=== PATIENT | male | born 1990 | race Two or more races ===

== ENCOUNTER 2023-06-11 19:44 | Inpatient (IN) | payer MEDICARE, MEDICAID ==
[~2023-06-11] VITALS: Ht 154.9 cm; Wt 55.2 kg
[2023-06-11] MEDS ORDERED: SODIUM CHLORIDE 0.9% 1,000 ML IV ONE (20:15)
[2023-06-11] MEDS ORDERED: levETIRAcetam 500 mg/100ml 100 ML IV SCH (20:15)
[2023-06-11 20:55] LABS: Basophils # (auto) 0 10 ^3/uL (0-0.2); Basophils % (auto) 0.2 % (0.0-2.0); Eosinophils # (auto) 0 10 ^3/uL (0-0.8); Eosinophils % (auto) 0.1 % (0.0-7.0); Hematocrit 46.3 % (41.0-53.0); Hemoglobin 15.1 g/dL (13.5-17.5); Lymphocytes # (auto) 0.7 10 ^3/uL (0.4-5.4); Lymphocytes % (auto) 5.7 % (10.0-50.0); Mean Corpuscular Hgb Conc. 32.7 g/dL (32.0-36.0); Mean Corpuscular Volume 85.6 fL (80.0-100.0); Monocytes # (auto) 0.6 10 ^3/uL (0-1.3); Monocytes % (auto) 5.1 % (0.0-12.0); Neutrophils # (auto) 10.3 10 ^3/uL (1.6-8.6); Neutrophils % (auto) 88.9 % (37.0-80.0); Red Blood Cells 5.41 10^6/uL (4.5-5.90); Red Cell Distribution Width 14.5 % (11.8-14.3); White Blood Cell 11.6 10^3/uL (4.4-10.8)
[2023-06-11 21:04] LABS: Chloride 105 mmol/L (98-107); Potassium 3.9 mmol/L (3.5-5.1); Sodium 138 mmol/L (136-145)
[2023-06-11 21:05] LABS: Anion Gap 7 (5-15); Calcium 9.4 mg/dL (8.5-10.1); Carbon Dioxide 26 mmol/L (20-30)
[2023-06-11 21:10] LABS: BUN/Creatinine Ratio 13.6 (10.0-20.0); Blood Urea Nitrogen 9 mg/dL (9-23); Glucose 101 mg/dL (74-106)
[2023-06-11] MEDS ORDERED: ONDANSETRON HCL 4 MG/2 ML VIAL IV PRN (22:00)
[2023-06-11] MEDS ORDERED: DOCUSATE SOD 100 MG CAP PO PRN (22:00)
[2023-06-11] MEDS: SODIUM CHLORIDE 0.9% 1,000 ML IV SCH (23:46)
[2023-06-11] MEDS: levETIRAcetam 1000 mg/100ml 100 ML IV SCH (23:46)
[2023-06-12] MEDS ORDERED: MORPHINE SULFATE INJ 2 MG/ml SYRG IV PRN
[2023-06-12] MEDS ORDERED: NITROGLYCERIN 0.4 MG SL TAB SL PRN
[2023-06-12 00:27] LABS: Urine Epithelial Cast None Seen /hpf (<5)
[2023-06-12 00:35] LABS: Urine Bacteria FEW /hpf (None Seen); Urine Blood Negative /uL (Negative); Urine Clarity Clear (Clear); Urine Color Yellow (Yellow); Urine Mucus FEW (None Seen); Urine Protein, UAD Negative (Negative); Urine Specific Gravity 1.021 (1.001-1.035); Urine Urobilinogen Normal (Negative); Urine WBC <1 /hpf (0 - 3); Urine pH 5.5 (5.0-8.0)
[2023-06-12 03:45] VITALS: PULSE 88; RESP 18; O2SAT 99
[2023-06-12 05:41] LABS: Basophils # (auto) 0 10 ^3/uL (0-0.2); Basophils % (auto) 0.2 % (0.0-2.0); Eosinophils # (auto) 0.1 10 ^3/uL (0-0.8); Eosinophils % (auto) 0.5 % (0.0-7.0); Hematocrit 43.9 % (41.0-53.0); Hemoglobin 14.8 g/dL (13.5-17.5); Lymphocytes # (auto) 1.5 10 ^3/uL (0.4-5.4); Lymphocytes % (auto) 14.6 % (10.0-50.0); Mean Corpuscular Hemoglobin 28.7 pg (28.0-32.0); Mean Corpuscular Hgb Conc. 33.6 g/dL (32.0-36.0); Mean Corpuscular Volume 85.2 fL (80.0-100.0); Monocytes # (auto) 0.8 10 ^3/uL (0-1.3); Monocytes % (auto) 7.4 % (0.0-12.0); Neutrophils # (auto) 8.1 10 ^3/uL (1.6-8.6); Neutrophils % (auto) 77.3 % (37.0-80.0); Nucleated Red Blood Cells % 0.1 %; Red Blood Cells 5.15 10^6/uL (4.5-5.90); Red Cell Distribution Width 14.6 % (11.8-14.3); White Blood Cell 10.4 10^3/uL (4.4-10.8)
[2023-06-12 05:51] LABS: Alanine Aminotransferase 21 U/L (7-40); Alkaline Phosphatase 61 U/L (46-116); Calcium 8.6 mg/dL (8.7-10.4); Carbon Dioxide 25 mmol/L (20-30); Chloride 111 mmol/L (98-107)
[2023-06-12 05:52] LABS: Anion Gap 6 (5-15); Aspartate Aminotransferase 21 U/L (13-40); BUN/Creatinine Ratio 16.9 (10.0-20.0); Bilirubin, Total 0.6 mg/dL (0.2-1.0); Blood Urea Nitrogen 11 mg/dL (9-23); Glucose 93 mg/dL (74-106); Sodium 142 mmol/L (136-145); Total Protein 6.6 g/dL (5.7-8.2)
[2023-06-12] MEDS: ACETAMINOPHEN 325 MG TAB PO PRN ×2 (07:22→18:57)
[2023-06-12 07:24] VITALS: PULSE 110; RESP 16; O2SAT 96
[2023-06-12] MEDS: levETIRAcetam 1000 mg/100ml 100 ML IV SCH ×2 (10:56→21:46)
[2023-06-12] MEDS: SODIUM CHLORIDE 0.9% 1,000 ML IV SCH (15:39)
[2023-06-12 19:35] VITALS: PULSE 89; RESP 14; O2SAT 93
[2023-06-12] MEDS: HYDROcodone-ACET 5/325MG TAB PO PRN (20:07)
[2023-06-12] MEDS ORDERED: LORazepam 2MG/ML-1ML VIAL IV PRN (21:15)
[2023-06-13] MEDS: SODIUM CHLORIDE 0.9% 1,000 ML IV SCH ×2 (07:06→22:31)
[2023-06-13 08:00] VITALS: PULSE 88; RESP 11; O2SAT 96
[2023-06-13] MEDS: levETIRAcetam 1000 mg/100ml 100 ML IV SCH ×2 (10:44→22:25)
[2023-06-13 19:40] VITALS: PULSE 75; RESP 16; O2SAT 99
[2023-06-13 21:44] VITALS: BP 137/87; PULSE 75; RESP 18; TEMP 98.3
[2023-06-13] MEDS: HYDROcodone-ACET 5/325MG TAB PO PRN (22:16)
[2023-06-13 22:50] VITALS: BP 137/87; PULSE 75; RESP 18; TEMP 98.3; O2SAT 97
[2023-06-14] MEDS ORDERED: LEVE750T15 PO (00:11)
[2023-06-14 05:00] VITALS: BP 116/78; PULSE 76; RESP 18; TEMP 97.5; O2SAT 100
[2023-06-14 08:36] VITALS: BP 131/93; PULSE 88; RESP 16; TEMP 98; O2SAT 97
[2023-06-14] MEDS: levETIRAcetam 1000 mg/100ml 100 ML IV SCH (09:10)
[2023-06-14 13:00] VITALS: BP 126/76; PULSE 69; RESP 20; TEMP 98.1; O2SAT 93
[2023-06-14 13:44] VITALS: TEMP 36.7
[2023-06-14] MEDS: SODIUM CHLORIDE 0.9% 1,000 ML IV SCH (16:40)
[2023-06-14 17:00] VITALS: BP 128/75; PULSE 94; RESP 18; TEMP 98.2; O2SAT 97
[2023-06-14 20:00] VITALS: PULSE 84
== END 2023-06-14 21:05 | disposition home or self-care (01) | DRG 101 ==
LOC: EDBD 19:44 → ER 19:44 → TELE 23:47 → TELE-WESTW 06-13 21:29
PROVIDERS: ADMIT Nurse Practitioner Family; ATTEND Family Medicine
DX: G40.909 Epilepsy, unspecified, not intractable, without status epilepticus (principal); G80.9 Cerebral palsy, unspecified; Z98.2 Presence of cerebrospinal fluid drainage device
CPT/HCPCS: 36415; 70450; 80048; 80053; 81001; 85025; 93005; 95819; G0378